=== PATIENT | female | born 1990 | race Two or more races ===

== ENCOUNTER 2018-07-14 05:32 | Day surgery (SDC) | payer BC, MEDICAID ==
[2018-07-07 10:15] LABS: HEMATOCRIT 39.4 % (36.0-47.0); HEMOGLOBIN 13.6 g/dL (12.0-15.5); MEAN CORPUSCULAR HEMOGLOBIN 31.7 pg (27.0-33.4); MEAN CORPUSCULAR HGB CONC 34.5 g/dL (32.0-36.0); MEAN CORPUSCULAR VOLUME 92 fl (80-97); PLATELET COUNT 219 10^3/uL (150-450); RED BLOOD COUNT 4.29 10^6/uL (3.72-5.28); RED CELL DISTRIBUTION WIDTH 11.8 % (11.5-14.0); WHITE BLOOD COUNT 6.4 10^3/uL (4.0-10.5)
[2018-07-07 10:30] LABS: APPEARANCE,URINE CLEAR; BILIRUBIN,URINE NEGATIVE (NEGATIVE); COLOR,URINE YELLOW; GLUCOSE, URINE NEGATIVE (NEGATIVE); KETONES,URINE NEGATIVE (NEGATIVE); LEUKOCYTE ESTERASE,URINE NEGATIVE (NEGATIVE); NITRITE,URINE NEGATIVE (NEGATIVE); PROTEIN,URINE NEGATIVE (NEGATIVE); UROBILINOGEN,URINE NEGATIVE mg/dL (<2.0)
[2018-07-07 10:46] LABS: ALANINE AMINOTRANSFERASE 18 U/L (9-52); ALBUMIN 4.2 g/dL (3.5-5.0); ALKALINE PHOSPHATASE 55 U/L (38-126); ANION GAP 10 (5-19); ASPARTATE AMINO TRANSFERASE 20 U/L (14-36); BILIRUBIN,DIRECT 0.2 mg/dL (0.0-0.4); BILIRUBIN,TOTAL 0.6 mg/dL (0.2-1.3); BLOOD UREA NITROGEN 6 mg/dL (7-20); CALCIUM 9.3 mg/dL (8.4-10.2); CARBON DIOXIDE 25 mmol/L (22-30); CHLORIDE 107 mmol/L (98-107); GLUCOSE 91 mg/dL (75-110); POTASSIUM 4.6 mmol/L (3.6-5.0); SODIUM 141.8 mmol/L (137-145); TOTAL PROTEIN 7.4 g/dL (6.3-8.2)
[~2018-07-14 05:32] MED LIST: GENTAMICIN SULFATE 80 MG in DEXTROSE 5%-WATER 100 ML IV PRN; LACTATED RINGERS 1000 ML IV PRN; LIDOCAINE 0.5% INJ-PF (5 MG/ML) 50 ML SDV SUBCUT PRN
[2018-07-14] MEDS ORDERED: ALBUTEROL SULFATE 0.083% NEB 2.5 MG/3 ML AMPUL NEB ONE (06:17)
[2018-07-14] MEDS ORDERED: LIDOCAINE 2% INJ (20 MG/ML) 20 ML MDV ONE (06:46)
[2018-07-14] MEDS ORDERED: MIDAZOLAM 2 MG/2 ML INJ ONE (06:47)
[2018-07-14] MEDS ORDERED: FENTANYL CITRATE INJ/PF 100 MCG/2 ML AMPUL ONE (06:47)
[2018-07-14] MEDS ORDERED: KETOROLAC TROMETHAMINE 60 MG/2 ML SDV ONE (06:47)
[2018-07-14] MEDS ORDERED: PROMETHAZINE HCL INJ 25 MG/1 ML VIAL ONE (06:47)
[2018-07-14] MEDS ORDERED: DEXAMETHASONE SOD PHOSPHATE INJ 4 MG/1 ML VIAL ONE (06:48)
[2018-07-14] MEDS ORDERED: PROPOFOL INJ 200 MG/20 ML VIAL IV ONE (06:48)
[2018-07-14] MEDS ORDERED: ONDANSETRON HCL INJ/PF 4 MG/2 ML SDV ONE (06:48)
[2018-07-14] MEDS ORDERED: SCOPOLAMINE HYDROBROMIDE 1.5 MG PATCH.TD72 ONE (07:19)
[2018-07-14] MEDS ORDERED: BUPIVACAINE HCL 0.25 % INJ/PF (2.5 MG/1 ML) 30 ML VIAL ONE (07:20)
[2018-07-14] MEDS ORDERED: BUPIVACAINE HCL 0.25% /EPINEPHRINE INJ/PF 30 ML SDV ONE (07:21)
[2018-07-14] MEDS ORDERED: PROMETHAZINE HCL INJ 25 MG/1 ML VIAL IV PRN ×2 (07:45→08:47)
[2018-07-14] MEDS ORDERED: FENTANYL CITRATE INJ/PF 100 MCG/2 ML AMPUL IV PRN ×3 (07:45)
[2018-07-14] MEDS ORDERED: DIPHENHYDRAMINE HCL 50 MG/ML VIAL IV PRN (07:45)
[2018-07-14] MEDS ORDERED: MEPERIDINE HCL/PF INJ 25 MG/1 ML DISP.SYRIN IV PRN (07:45)
[2018-07-14] MEDS ORDERED: MORPHINE SULFATE 10 MG/ML INJ IV PRN (07:45)
[2018-07-14] MEDS ORDERED: ONDANSETRON HCL INJ/PF 4 MG/2 ML SDV IV PRN (07:45)
[2018-07-14] MEDS ORDERED: OXYCODONE-ACETAMINOPHEN 5-325 MG TABLET PO PRN ×2 (08:46)
--- NOTE | 2018-07-14 09:05 | OPERATIVE REPORT E ---
Operative Report NAME: DENEEN JOSEPH : 1990 AGE: 28Y DATE OF SURGERY: 07/14/2018 ROOM: PREOPERATIVE DIAGNOSES: 1. Undesired fertility. 2. Bilateral labia majora cysts. POSTOPERATIVE DIAGNOSES: 1. Undesired fertility. 2. Bilateral labia majora cysts. 3. Suspected hidradenitis suppurativa of bilateral labia majora. OPERATION: 1. Pelvic under anesthesia. 2. Laparoscopic Filshie clip application for undesired fertility. SURGEON: DELIA AGUILERA M.D. ANESTHESIA: General. PERTINENT HISTORY AND OPERATIVE FINDINGS: This is a 28-year-old female who was a multip and was desirous of elective sterilization. She was aware of the risks and benefits and a small risk of failure. She was also having some issues with labial cysts and wanted these possibly excised at the time of surgery. She was aware of the risks and benefits, including bleeding, organ damage, and potential failure, and was willing to accept these risks. At the time of surgery the vulva had two areas, one on the right anterior vulva and one on the left posterior vulva, which appeared to be draining cysts. They did seem to have a tract associated with them and it was concerning for hidradenitis. The vagina appeared to be normal. The cervix appeared to be normal, consistent with multiparous state. The uterus was anterior, normal size and shape. Both tubes appeared to be normal, as did both ovaries. The cul-de-sac was clean. The bowel appeared to be normal. The liver and gallbladder also appeared to be normal. There was no evidence of any pelvic adhesions or abdominal adhesions. OPERATIVE PROCEDURE: The patient was brought into the OR, placed on the table in a supine position, inducted under general anesthesia. Following this she was repositioned in dorsal lithotomy position, prepped and draped in a sterile fashion. The bladder was drained of about 20 mL of clear yellow urine. She had just urinated prior to coming back to the OR. The pelvic examination was as above, and it was performed. The patient then had a bivalve speculum inserted. The cervix was grasped on its anterior lip with a single-tooth tenaculum, and it was sounded to 8 cm. Tenaculum and probe was inserted. The other equipment was removed. Attention was turned toward the abdominal wall. A Veress needle was introduced through the umbilicus and carried through the various layers until the abdominal cavity was entered. The patient then had the CO2 connected and the CO2 was opened up. The opening pressure was 4 cm of water. The closing pressure was 15 cm of water. She had 3.4 L of CO2 injected to establish a pneumoperitoneum. The Veress needle was removed. A small incision was then made infraumbilically. Through this incision a trocar and sleeve was inserted. The trocar was removed and a laparoscope was inserted. A second incision was then made suprapubically. Through this incision a trocar and sleeve were inserted under visualization, the trocar was removed, and through the sleeve a probe was inserted. The contents of the pelvis and abdomen were then visualized. Then, using the Filshie clip applicator, this was inserted gently through the sleeve and first the right salpinx and then the left salpinx had Filshie clips applied to the narrowest part of the fallopian tube, probably about 2 cm from the fundus. This terminated this part of the procedure. Pictures were taken. The lower sleeve was removed. There was no evidence of active bleeding. The CO2 was allowed to escape. The upper sleeve was removed. The patient had approximately 4 mL of 0.25% Marcaine injected into the upper subumbilical and suprapubic incisions. The fascia was then closed in both these incisions with interrupted 2-0 Vicryl. The skin edges were closed in the subumbilical incision with a subcuticular using 4-0 Prolene. The suprapubic incision was closed with interrupted 4-0 Prolene using 2 sutures. Attention was turned back down to the vagina. The Hulka applicator was removed from the uterus, which was used during the tubal for manipulation. The cervix was inspected and found to be okay, no evidence of active bleeding. The vulva was checked once again. It was consistent with these two areas which appeared to be hidradenitis, and with this in mind we terminated the procedure. The anesthesia was discontinued. The patient was placed back in a supine position and transferred to the recovery room in satisfactory condition. DICTATING PHYSICIAN: DELIA AGUILERA M.D. [id number] RICHIE#: [id number] ID: [id number] JOB#: [id number] ACCT: [id number] cc:DELIA AGUILERA M.D. >
[2018-07-14] MEDS ORDERED: OXYCODONE-ACETAMINOPHEN 5-325 MG TABLET ONE (09:39)
[2018-07-14 10:41] VITALS: BP 115/76
[2018-07-14] MEDS ORDERED: ROCURONIUM BROMIDE INJ 50 MG/5 ML VIAL IV ONE (13:31)
[2018-07-14] MEDS ORDERED: SUCCINYLCHOLINE CHLORIDE INJ 200 MG/10 ML VIAL ONE (13:31)
== END 2018-07-14 10:35 | disposition home or self-care (01) ==
LOC: OROUT 05:32
PROVIDERS: ATTEND Obstetrics & Gynecology
DX: Z30.2 Encounter for sterilization (principal); N90.7 Vulvar cyst; F17.210 Nicotine dependence, cigarettes, uncomplicated; Z80.0 Family history of malignant neoplasm of digestive organs
CPT/HCPCS: 36415; 85027; 81025; 80053; 81001; 94640; 58671; J2250; J3490 ×2; J1100; J1885; J3010; J1580; J2550; J0330; J2405; J7060; J2704; 851

== ENCOUNTER 2018-10-26 17:10 | Emergency (ER) | payer BC ==
[2018-10-26 17:17] VITALS: BP 112/67
--- NOTE | 2018-10-26 17:23 | ER Document Report ---
ED Medical Screen (RME) - General Chief Complaint: Abdominal Pain Stated Complaint: ISSUE Time Seen by Provider: 10/26/18 17:21 Primary Care Provider: MILAGROS AGUILERA NP [Primary Care Provider] - Follow up as needed Mode of Arrival: Ambulatory Information source: Patient Notes: 28-year-old female presented to ED for complaint of pelvic pain breast sensitivi ty. She states she had a bilateral tubal ligation at the end of June did not have any. And then she developed the low abdominal pain so she did home test which was positive. She went to [facility] which they did a blood test and told her that she was about 6 weeks . She came to the emergency room to find out where the baby is if she just had a tubal ligation. 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 I have greeted and performed a rapid initial assessment of this patient. A comprehensive ED assessment and evaluation of the patient, analysis of test results and completion of medical decision making process will be conducted by an additional ED providers. TRAVEL OUTSIDE OF THE [place] IN LAST 30 DAYS: No - Related Data Allergies/Adverse Reactions: Penicillins Allergy (Verified 10/26/18 17:11) unsure Past Medical History - Past Medical History Cardiac Medical History: Denies: Hx Coronary Artery Disease, Hx Heart Attack, Hx Hypertension Pulmonary Medical History: Denies: Hx Asthma, Hx Bronchitis, Hx COPD, Hx Pneumonia Neurological Medical History: Denies: Hx Cerebrovascular Accident, Hx Seizures Musculoskeltal Medical History: Denies Hx Arthritis - Immunizations Hx Diphtheria, Pertussis, Tetanus Vaccination: Yes Physical Exam - Vital signs Vitals: Temp Pulse Resp BP Pulse Ox 98.9 F 97 14 112/67 96 10/26/18 17:16 10/26/18 17:16 10/26/18 17:16 10/26/18 17:16 10/26/18 17:16 Course - Vital Signs Vital signs: Temp Pulse Resp BP Pulse Ox 98.9 F 97 14 112/67 96 10/26/18 17:16 10/26/18 17:16 10/26/18 17:16 10/26/18 17:16 10/26/18 17:16 Doctor's Discharge - Discharge Referrals: MILAGROS AGUILERA NP [Primary Care Provider] - Follow up as needed
[2018-10-26 17:48] LABS: ABSOLUTE LYMPHOCYTES (AUTO) 1.4 10^3/uL (0.5-4.7); ABSOLUTE MONOCYTES (AUTO) 0.4 10^3/uL (0.1-1.4); ABSOLUTE NEUT (AUTO) 7.6 10^3/uL (1.7-8.2); BASOPHILS % (AUTO) 0.1 % (0-2); EOSINOPHILS % (AUTO) 0.2 % (0-6); HEMATOCRIT 36.5 % (36.0-47.0); HEMOGLOBIN 12.8 g/dL (12.0-15.5); LYMPHOCYTES % (AUTO) 15.3 % (13-45); MEAN CORPUSCULAR HEMOGLOBIN 31.7 pg (27.0-33.4); MEAN CORPUSCULAR VOLUME 91 fl (80-97); MONOCYTES % (AUTO) 4.2 % (3-13); PLATELET COUNT 204 10^3/uL (150-450); RED BLOOD COUNT 4.02 10^6/uL (3.72-5.28); RED CELL DISTRIBUTION WIDTH 11.5 % (11.5-14.0); SEGMENTED NEUTROPHILS % (AUTO) 80.2 % (42-78); TOTAL CELLS COUNTED % (AUTO) 100 %; WHITE BLOOD COUNT 9.4 10^3/uL (4.0-10.5)
[2018-10-26 18:01] LABS: AMORPHOUS SEDIMENT,URINE TRACE /HPF; APPEARANCE,URINE CLOUDY; BILIRUBIN,URINE NEGATIVE (NEGATIVE); COLOR,URINE YELLOW; GLUCOSE, URINE NEGATIVE (NEGATIVE); KETONES,URINE TRACE mg/dL (NEGATIVE); LEUKOCYTE ESTERASE,URINE NEGATIVE (NEGATIVE); NITRITE,URINE NEGATIVE (NEGATIVE); PROTEIN,URINE NEGATIVE (NEGATIVE); URINE SPECIFIC GRAVITY 1.016; UROBILINOGEN,URINE NEGATIVE mg/dL (<2.0)
[2018-10-26 18:03] LABS: ALBUMIN 4.1 g/dL (3.5-5.0); ALKALINE PHOSPHATASE 61 U/L (38-126); ANION GAP 9 (5-19); ASPARTATE AMINO TRANSFERASE 20 U/L (14-36); BILIRUBIN,DIRECT 0.2 mg/dL (0.0-0.4); BILIRUBIN,TOTAL 0.5 mg/dL (0.2-1.3); BLOOD UREA NITROGEN 8 mg/dL (7-20); CALCIUM 9.5 mg/dL (8.4-10.2); CARBON DIOXIDE 25 mmol/L (22-30); CHLORIDE 102 mmol/L (98-107); GLUCOSE 88 mg/dL (75-110); POTASSIUM 3.8 mmol/L (3.6-5.0); TOTAL PROTEIN 7.1 g/dL (6.3-8.2)
--- NOTE | 2018-10-26 19:45 | RADIOLOGY REPORT (SQ) ---
EXAM DESCRIPTION: U/S OB 14+ TRNABD 1GES W/O DOP COMPLETED DATE/TIME: 10/26/2018 7:33 pm REASON FOR STUDY: BTL end of June positive test now COMPARISON: None. TECHNIQUE: Static and Dynamic grayscale imaging performed of gravid uterus using transabdominal appr oach. Additional selected color Doppler and spectral images recorded. All stored on PACS. LIMITATIONS: None. FINDINGS: FETUSES SEEN:1 EGA: 14 weeks 6 days Calculated using BPD,FL,HC,AC documented on images. No discrepancy with clinica l dates. JOANIE: 04/20/2019 EFW: 106+/- 16 grams PERCENTILE: Not calculated. KATHY: Adequate. PLACENTA: Posterior, cannot exclude previa. Grade 0 PRESENTATION: Variable. ANATOMY: Not surveyed. MATERNAL ADNEXA: Maternal ovaries not visualized. CERVICAL LENGTH: 3.2 cm. Closed. OTHER: No other significant finding. IMPRESSION: LIVING INTRAUTERINE . ESTIMATED GESTATIONAL AGE 14 weeks 6 days NO VISUALIZED ANOMALIES. Trimester of : Second trimester - 13 weeks 1 day to 27 weeks 6 days. TECHNICAL DOCUMENTATION: JOB ID: [id number]- All Rights Reserved Reading location - IP/workstation name: [email or web address]
== END 2018-10-26 20:00 | disposition home or self-care (01) ==
LOC: ER 17:10
DX: O26.892 Other specified pregnancy related conditions, second trimester (principal); R10.2 Pelvic and perineal pain; Z3A.00 Weeks of gestation of pregnancy not specified; Z98.51 Tubal ligation status
CPT/HCPCS: 36415; 76805; 80053; 81001; 84702; 85025; 86900; 86901; 99284

== ENCOUNTER → 2018-10-26 | Outpatient (CLI) | payer BC | LOC: OD 11:54 | PROVIDERS: ATTEND Nurse Practitioner Primary Care | DX: Z32.01 Encounter for pregnancy test, result positive (principal) | CPT/HCPCS: 36415; 84702 ==

== ENCOUNTER 2019-04-05 07:18 | Inpatient (IN) | payer BC, MEDICAID ==
[2019-04-05 08:16] LABS: APPEARANCE,URINE SLIGHTLY-CLOUDY; BILIRUBIN,URINE NEGATIVE (NEGATIVE); COLOR,URINE YELLOW; GLUCOSE, URINE NEGATIVE (NEGATIVE); KETONES,URINE NEGATIVE (NEGATIVE); LEUKOCYTE ESTERASE,URINE SMALL (NEGATIVE); NITRITE,URINE NEGATIVE (NEGATIVE); PROTEIN,URINE NEGATIVE (NEGATIVE); URINE SPECIFIC GRAVITY 1.008; UROBILINOGEN,URINE NEGATIVE mg/dL (<2.0)
[2019-04-05] MEDS ORDERED: CEFAZOLIN 2 GM/D5W RTU 2 GM/50 ML RTUPB IV PRN (08:22)
[2019-04-05] MEDS ORDERED: CEFAZOLIN 1 GM/D5W RTU 2 GM/100 ML RTUPB IV ONE (08:25)
[2019-04-05 08:33] LABS: URINE AMPHETAMINES SCREEN NEGATIVE; URINE BARBITURATES SCREEN NEGATIVE; URINE BENZODIAZEPINES SCREEN NEGATIVE; URINE COCAINE SCREEN NEGATIVE; URINE MARIJUANA (THC) SCREEN NEGATIVE; URINE METHADONE SCREEN NEGATIVE; URINE PHENCYCLIDINE SCREEN NEGATIVE
[2019-04-05] MEDS ORDERED: RINGERS SOLUTION,LACTATED 1,000 ML IV ONE (10:24)
--- NOTE | 2019-04-05 10:32 | Admission Physical ---
Datetime Report Generated by CPN: 04/05/2019 10:32 CURRENT ADMISSION Chief Complaint: Uterine Contractions; Vaginal Bleeding Indication for Induction: Not Applicable Admit Impression : Term, Intrauterine ; Active Labor Admit Plan: Admit to Unit; Initiate Labor Protocol ALLERGIES Medication Allergies: Yes Medication Allergies: Penicillins/unsure (10/26/2018) Latex: No Latex Allergies OBSTETRICAL HISTORY EDC: 04/20/2019 00:00 : 3 Para: 2 Term: 1 : 1 Cesareans: 0 Gestational Diabetes: No Rh Sensitization: No Incompetent Cervix: No JENNIFER: No Infertility: No ART Treatment: No Uterine Anomaly: No IUGR: No Hx Previous C/S: No Macrosomia: No Hx Loss/Stillborn: No PIH: No Hx : No Placenta Previa/Abruption: No Depression/PP Depression: No PTL/PROM: No Post Hemorrhage: No Current Procedures: Ultrasound SEE RECORDS Alcohol: No Marijuana : No Cocaine: No Other Illicit Drugs: No Cigarettes: Former Smoker. [id number] MEDICAL HISTORY Diabetes: No Blood Transfusion: No Pulmonary Disease (Asthma, TB): No Breast Disease: No Hypertension: No Grill Prep Cook Surgery: Yes Heart Disease: No Hosp/Surgery: No Autoimmune Disorder: No Anesthetic Complications: No Kidney Disease: No Abnormal Pap Smear: No Neuro/Epilepsy: No Psychiatric Disorders: No Other Medical Diseases: No Hepatitis/Liver Disease: No Significant Family History: No Varicosities/Phlebitis: No Trauma/Violence : No Thyroid Dysfunction: No Medical History Comments: tubal ligation 06/2018 INFECTIOUS HISTORY Gonorrhea: No Genital Herpes: No Chlamydia: No Tuberculosis: No Syphilis: No Hepatitis: No HIV/AIDS Exposure: No Rash or Viral Illness: No HPV: No PHYSICAL EXAM General: Normal HEENT: Normal Neurologic: Normal Thyroid: Deferred Heart: Normal Lungs: Normal Breast: Deferred Back: Normal Abdomen: Normal Genitourinary Exam: Normal Extremities: Normal DTRs: Deferred Pelvic Type: Adequate Physical Exam Comments: pelvis proven to 8# Vital Signs: Reviewed VAGINAL EXAM Dilatation: 5 Effacement: 70 Station: -1 Contraction Comments: q3 mins MEMBRANES Pooling: Negative FETUS A EGA: 37.6 Monitoring: External US FHR- Baseline: 125 Variability: Minimal - Undetectable to <=5bpm Accelerations: 10X10 Decelerations: None FHR Category: Category I Estimated Weight (gm): 3300 Presentation: Vertex Presentation- Other: by sve Admit Comment: at 37w6d in active labor. GBS pos, allergic to pcn, being treated with ampicillin. P: routine labor care, anticipate PLANS FOR LABOR AND DELIVERY Labor and Delivery: None Pain Management: Natural Feeding Preference: Breast Benefit of Breast Feed Discussed: Yes Circumcision: N/A INFORMED CONSENT Assignment: Liana Bradford MD Signature: with User ID: Gene : with User ID: Gene
[2019-04-05 11:02] LABS: ABSOLUTE LYMPHOCYTES (AUTO) 1.6 10^3/uL (0.5-4.7); ABSOLUTE MONOCYTES (AUTO) 0.5 10^3/uL (0.1-1.4); ABSOLUTE NEUT (AUTO) 10.9 10^3/uL (1.7-8.2); BASOPHILS % (AUTO) 0.2 % (0-2); EOSINOPHILS % (AUTO) 0.2 % (0-6); HEMATOCRIT 32.5 % (36.0-47.0); HEMOGLOBIN 11.2 g/dL (12.0-15.5); LYMPHOCYTES % (AUTO) 12.6 % (13-45); MEAN CORPUSCULAR HEMOGLOBIN 30.7 pg (27.0-33.4); MEAN CORPUSCULAR HGB CONC 34.4 g/dL (32.0-36.0); MEAN CORPUSCULAR VOLUME 89 fl (80-97); MONOCYTES % (AUTO) 3.6 % (3-13); PLATELET COUNT 171 10^3/uL (150-450); RED BLOOD COUNT 3.65 10^6/uL (3.72-5.28); RED CELL DISTRIBUTION WIDTH 12.4 % (11.5-14.0); SEGMENTED NEUTROPHILS % (AUTO) 83.4 % (42-78); TOTAL CELLS COUNTED % (AUTO) 100 %; WHITE BLOOD COUNT 13.1 10^3/uL (4.0-10.5)
[2019-04-05] MEDS ORDERED: CEFAZOLIN 1 GM/D5W RTU 1 GM/50 ML RTUPB IV SCH (15:00)
[2019-04-05] MEDS ORDERED: CEFAZOLIN 1 GM/D5W RTU 1 GM/50 ML RTUPB IV ONE (15:19)
[2019-04-05] MEDS ORDERED: LIDOCAINE 1% INJ-PF (10 MG/ML) 30 ML SDV ONE (15:32)
[2019-04-05] MEDS ORDERED: OXYTOCIN 10 UNIT/ML VIAL ONE (15:32)
[2019-04-05] MEDS ORDERED: OXYTOCIN/NORMAL SALINE 20 UNIT/1,000 ML RTUINJ ONE (15:32)
[2019-04-05] MEDS ORDERED: MISOPROSTOL 0.2 MG TABLET ONE (15:32)
[2019-04-05] MEDS ORDERED: ZOLPIDEM TARTRATE 5 MG TABLET PO PRN (16:39)
[2019-04-05] MEDS ORDERED: NA PHOS,M-B/NA PHOS,DI-BA (ADULT) 133 ML ENEMA PR PRN (16:39)
[2019-04-05] MEDS ORDERED: MAGNESIUM HYDROXIDE SUSP 30 ML UDCUP PO PRN (16:39)
[2019-04-05] MEDS ORDERED: ACETAMINOPHEN 650 MG SUPP.RECT PR PRN (16:39)
[2019-04-05] MEDS ORDERED: BENZOCAINE/MENTHOL AEROSOL SPRAY 56 ML TOP PRN (16:39)
[2019-04-05] MEDS ORDERED: MEASLES,MUMPS&RUBELLA VACC/PF 0.5 ML VIAL SUBCUT PRN (16:39)
[2019-04-05] MEDS ORDERED: DIPHENHYDRAMINE HCL 25 MG CAPSULE PO PRN (16:39)
[2019-04-05] MEDS ORDERED: DIBUCAINE 1% OINTMENT 28 GM TP PRN (16:39)
[2019-04-05] MEDS ORDERED: PROMETHAZINE HCL INJ 25 MG/1 ML VIAL IV PRN (16:39)
[2019-04-05] MEDS ORDERED: GLYCERIN/WITCH HAZEL LEAF 1 EACH MED..WIPE TP PRN (16:39)
[2019-04-05] MEDS ORDERED: PROMETHAZINE HCL 25 MG SUPP.RECT PR PRN (16:39)
[2019-04-05] MEDS ORDERED: DIPH/PERTUSS(ACELL)/TETANUS VAC/PF 0.5 ML SYR (>=10YO) IM PRN (16:39)
[2019-04-05] MEDS ORDERED: PROMETHAZINE HCL 25 MG TABLET PO PRN (16:39)
[2019-04-05] MEDS ORDERED: ACETAMINOPHEN WITH CODEINE #3 TABLET PO PRN ×2 (16:39)
[2019-04-05] MEDS ORDERED: OXYTOCIN/NORMAL SALINE 20 UNIT/1,000 ML RTUINJ IV PRN (16:39)
[2019-04-05] MEDS ORDERED: PSEUDOEPHEDRINE HCL 30 MG TABLET PO PRN (16:39)
[2019-04-05] MEDS ORDERED: FERROUS SULFATE 325 MG TABLET PO ONE (19:47)
[2019-04-05] MEDS ORDERED: DOCUSATE SODIUM 100 MG CAPSULE ONE (19:47)
[2019-04-05] MEDS: DOCUSATE SODIUM 100 MG CAPSULE PO SCH (19:49)
[2019-04-05] MEDS: FERROUS SULFATE 325 MG TABLET PO SCH (19:49)
--- NOTE | 2019-04-05 20:06 | Delivery Summary ---
Del Sum A-C Datetime Report Generated by CPN: 04/05/2019 20:06 DELIVERY PERSONNEL DELIVERY PERSONNEL: [id number] Delivery Doctor:: Aruna Whatley CNM Labor and Delivery Nurse:: Bobbi Bhatia RNdoll wig maker Nurse:: Jocelynn Flood RN Garment Steamer/OLIVE PACKER: Ambar Maldonado, UTILITIES OPERATOR Garment Steamer/OLIVE PACKER: Felicia Schneider ST Additional Personnel: : Lula Ji RN MATERNAL INFORMATION Delivery Anesthesia: None Medications After Delivery: Pitocin Bolus-Please Comment Delivery QBL: 200 Maternal Complications: None Provider Comments: STEVEN VIABLE FEMALE INFANT WITH SPONTANEOUS CRY. CORD DOUBLE CLAMPED AND CUT. SPONTANEOUS INTACT PLACENTA WITH 3VC. NO LACERATIONS. MOTHER AND INFANT STABLE IN L_D#5. LABOR SUMMARY EDC: 04/20/2019 00:00 No. Babies in Womb: 1 Attempted: No Labor Anesthesia: None LABOR INFORMATION Reason for Induction: Not Applicable Onset of Labor: 04/05/2019 06:00 Complete Dilatation: 04/05/2019 16:34 Oxytocin: N/A Group B Beta Strep: positive Antibiotics # of Doses: 2 Antibiotics Time of Last Dose: 1510 Name of Antibiotic Given: ancef Steroids Given: None Reason Steroids Not Administered: Not Applicable MEMBRANES Membranes Rupture Method: Artificial Rupture of Membranes: 04/05/2019 15:28 Length of Rupture (hr): 1.25 Amniotic Fluid Color: Clear Amniotic Fluid Amount: Small Amniotic Fluid Odor: Normal STAGES OF LABOR Stage 1 hr: 10 Stage 1 min: 34 Stage 2 hr: 0 Stage 2 min: 9 Stage 3 hr: 0 Stage 3 min: 4 Total Time in Labor hr: 10 Total Time in Labor min: 47 VAGINAL DELIVERY Episiotomy: None Laceration #1: None Laceration Extension #1: N/A Laceration Repair: Not Applicable Sponge Count Correct: N/A Sharps Count Correct: N/A CSECTION DELIVERY Primary Indication: N/A Secondary Indication: N/A CSection Incidence: N/A Labor: N/A Elective: N/A CSection Incision: N/A BABY A INFORMATION Delivery Date/Time: 04/05/2019 16:43 Method of Delivery: Vaginal Nurse Controlled Delivery: No Born in Route : Yes : N/A Forceps: N/A Vacuum Extraction: N/A Shoulder Dystocia : No PRESENTATION/POSITION BABY A Presentation: Cephalic Cephalic Presentation: Vertex Vertex Position: Left Occipital Anterior Breech Presentation: N/A PLACENTA INFORMATION BABY A Placenta Delivery Time : 04/05/2019 16:47 Placenta Method of Delivery: Spontaneous Placenta Status: Delivered SCORES BABY A Heart Rate 1 min: >100 bpm Resp Effort 1 min: Good Cry Reflex Irritability 1 min: Cough or Sneeze or Pulls Away Muscle Tone 1 min: Active Motion Color 1 min: Body [place], Extremities Blue Resuscitation Effort 1 min: N/A SCORE 1 MIN: 9 Heart Rate 5 min: >100 bpm Resp Effort 5 min: Good Cry Reflex Irritability 5 min: Cough or Sneeze or Pulls Away Muscle Tone 5 min: Active Motion Color 5 min: Body [place], Extremities Blue Resuscitation Effort 5 min: N/A SCORE 5 MIN: 9 INFORMATION BABY A Gestational Age at Delivery: 37.6 Gestational Status: Early Term- 37- 38.6 Weeks Outcome : Liveborn Infant Condition : Stable Infant Sex: Female IDENTIFICATION BABY A Infant Verification Date/Time: 04/05/2019 17:13 ID Band Number: [id number] Mother's Name Verified: Yes RN Verifying : [facility] RN Additional Verifying Personnel: R Alirezaalessandro RN WEIGHT/LENGTH BABY A Infant Birthweight (gm): 2776 Infant Weight (lb): 6 Infant Weight (oz): 2 Infant Length (in): 19.00 Infant Length (cm): 48.26 CORD INFORMATION BABY A No. Cord Vessels: 3 Nuchal Cord : N/A Cord Blood Taken: Yes-For Storage (Mom's Blood type +) Suction: None ASSESSMENT BABY A Skin to Skin: Yes BABY B INFORMATION : N/A SIGNATURES Assignment: Liana Bradford, MD Signature: with User ID: [email or web address] : with User ID: [email or web address] : I was personally available for consultation and serving as supervising physician for the MLP.
[2019-04-05] MEDS: FAMOTIDINE 20 MG TABLET PO SCH (22:32)
[2019-04-05] MEDS: IBUPROFEN 800 MG TABLET PO SCH (22:32)
[2019-04-06] MEDS: IBUPROFEN 800 MG TABLET PO SCH ×3 (05:09→21:25)
[2019-04-06 07:52] LABS: HEMATOCRIT 32.8 % (36.0-47.0); HEMOGLOBIN 11.6 g/dL (12.0-15.5); MEAN CORPUSCULAR HEMOGLOBIN 31.2 pg (27.0-33.4); MEAN CORPUSCULAR HGB CONC 35.2 g/dL (32.0-36.0); MEAN CORPUSCULAR VOLUME 88 fl (80-97); PLATELET COUNT 168 10^3/uL (150-450); RED BLOOD COUNT 3.71 10^6/uL (3.72-5.28); RED CELL DISTRIBUTION WIDTH 12.1 % (11.5-14.0); WHITE BLOOD COUNT 11.3 10^3/uL (4.0-10.5)
--- NOTE | 2019-04-06 09:21 | PDOC PROGRESS REPORT ---
Subjective-OB Progress Note for:: 04/06/19 Subjective: Doing well, no c/o, breast and bottle, voiding, eating well, scant lochia Physical Exam (OB) Vital Signs: Temp Pulse Resp BP Pulse Ox 97.8 F 62 16 105/65 99 04/06/19 08:00 04/06/19 08:00 04/06/19 08:00 04/06/19 08:00 04/06/19 08:00 Intake & Output 04/05/19 04/06/19 04/07/19 06:59 06:59 06:59 Intake Total 1500 Balance 1500 Weight 76.1 kg - PIH/Pre-Eclampsia Headache: Absent Epigastric Pain: No Visual Changes: No - Lochia Lochia Amount: Small 10-25 ml Lochia Color: Rubra/Red - Abdomen Description: Soft Hernia Present: No Fundal Description: Firm, Midline Fundal Height: u/u - u/2 Objective-Diagnostic Laboratory: 04/06/19 07:27 04/05/19 04/05/19 04/06/19 10:45 10:45 07:27 WBC 13.1 H 11.3 H RBC 3.65 L 3.71 L Hgb 11.2 L 11.6 L Hct 32.5 L 32.8 L MCV 89 88 MCH 30.7 31.2 MCHC 34.4 35.2 RDW 12.4 12.1 Plt Count 171 168 Seg Neutrophils % 83.4 H Blood Type B POSITIVE Antibody Screen NEGATIVE Assessment and Plan(PN) - Assessment and Plan (1) GBS (group B Streptococcus carrier), +RV culture, currently Is this a current diagnosis for this admission?: Yes (2) Vaginal delivery Is this a current diagnosis for this admission?: Yes - Time Spent with Patient Time with patient: Less than 15 minutes Medications reviewed and adjusted accordingly: Yes - Disposition Anticipated Discharge: Home Within: within 24 hours
[2019-04-06] MEDS: FAMOTIDINE 20 MG TABLET PO SCH ×2 (10:50→21:25)
[2019-04-06] MEDS: SENNOSIDES/DOCUSATE 8.6-50 MG 1 EACH TABLET PO SCH (10:50)
[2019-04-06] MEDS: DOCUSATE SODIUM 100 MG CAPSULE PO SCH ×2 (10:50→17:07)
[2019-04-06] MEDS: FERROUS SULFATE 325 MG TABLET PO SCH ×2 (10:50→17:08)
[2019-04-06] MEDS: PRENATAL VITAMIN W DHA CAPSULE PO SCH (10:50)
[2019-04-07] MEDS: IBUPROFEN 800 MG TABLET PO SCH (06:23)
[2019-04-07] MEDS: PRENATAL VITAMIN W DHA CAPSULE PO SCH (09:43)
[2019-04-07] MEDS: DOCUSATE SODIUM 100 MG CAPSULE PO SCH (09:43)
[2019-04-07] MEDS: FAMOTIDINE 20 MG TABLET PO SCH (09:43)
[2019-04-07] MEDS: SENNOSIDES/DOCUSATE 8.6-50 MG 1 EACH TABLET PO SCH (09:43)
[2019-04-07] MEDS: FERROUS SULFATE 325 MG TABLET PO SCH (09:43)
--- NOTE | 2019-04-07 11:18 | PDOC DISCHARGE SUMMARY ---
Impression - Admit/DC Date/PCP Admission Date/Primary Care Provider: 04/05/19 10:40 MILAGROS AGUILERA NP Discharge Date: 04/07/19 - PP Day #2, doing well, no issues, B+, Rubella immune, - Discharge Diagnosis (1) normal course Is this a current diagnosis for this admission?: Yes (2) GBS (group B Streptococcus carrier), +RV culture, currently Is this a current diagnosis for this admission?: Yes (3) Vaginal delivery Is this a current diagnosis for this admission?: Yes - Additional Information Resuscitation Status: Full Code Discharge Diet: As Tolerated, Regular Discharge Activity: Activity As Tolerated, No Lifting Over 10 Pounds, Pelvic Rest Referrals: [facility] [Provider Group] Prescriptions: Ibuprofen [Motrin 800 mg Tablet] 800 mg PO Q8 PRN #60 tablet PRN Reason: Pain Scale Of 3 Home Medications: Ibuprofen [Motrin 800 mg Tablet] 800 mg PO Q8 PRN #60 tablet 04/07/19 Vit/Dha [ Multi + Dha Capsule] 1 cap PO DAILY capsule 04/07/19 HPI Reason(s) for Admission: Onset of Labor Intrapartum Procedure(s): Spontaneous Vaginal Delivery Results Laboratory Results: WBC 11.3 10^3/uL (4.0-10.5) H 04/06/19 07:27 RBC 3.71 10^6/uL (3.72-5.28) L 04/06/19 07:27 Hgb 11.6 g/dL (12.0-15.5) L 04/06/19 07:27 Hct 32.8 % (36.0-47.0) L 04/06/19 07:27 MCV 88 fl (80-97) 04/06/19 07:27 MCH 31.2 pg (27.0-33.4) 04/06/19 07:27 MCHC 35.2 g/dL (32.0-36.0) 04/06/19 07:27 RDW 12.1 % (11.5-14.0) 04/06/19 07:27 Plt Count 168 10^3/uL (150-450) 04/06/19 07:27 Lymph % (Auto) 12.6 % (13-45) L 04/05/19 10:45 [place] % (Auto) 3.6 % (3-13) 04/05/19 10:45 Eos % (Auto) 0.2 % (0-6) 04/05/19 10:45 Baso % (Auto) 0.2 % (0-2) 04/05/19 10:45 Absolute Neuts (auto) 10.9 10^3/uL (1.7-8.2) H 04/05/19 10:45 Absolute Lymphs (auto) 1.6 10^3/uL (0.5-4.7) 04/05/19 10:45 Absolute Monos (auto) 0.5 10^3/uL (0.1-1.4) 04/05/19 10:45 Absolute Eos (auto) 0.0 10^3/uL (0.0-0.6) 04/05/19 10:45 Absolute Basos (auto) 0.0 10^3/uL (0.0-0.2) 04/05/19 10:45 Seg Neutrophils % 83.4 % (42-78) H 04/05/19 10:45 Urine Color YELLOW 04/05/19 07:20 Urine Appearance SLIGHTLY-CLOUDY 04/05/19 07:20 Urine pH 7.0 (5.0-9.0) 04/05/19 07:20 Ur Specific [place] 1.008 04/05/19 07:20 Urine Protein NEGATIVE mg/dL (NEGATIVE) 04/05/19 07:20 Urine Glucose (UA) NEGATIVE mg/dL (NEGATIVE) 04/05/19 07:20 Urine Ketones NEGATIVE mg/dL (NEGATIVE) 04/05/19 07:20 Urine Blood LARGE (NEGATIVE) H 04/05/19 07:20 Urine Nitrite NEGATIVE (NEGATIVE) 04/05/19 07:20 Urine Bilirubin NEGATIVE (NEGATIVE) 04/05/19 07:20 Urine Urobilinogen NEGATIVE mg/dL (<2.0) 04/05/19 07:20 Ur Leukocyte Esterase SMALL (NEGATIVE) H 04/05/19 07:20 Urine Ascorbic Acid NEGATIVE (NEGATIVE) 04/05/19 07:20 Urine Opiates Screen NEGATIVE 04/05/19 07:20 Urine Methadone Screen NEGATIVE 04/05/19 07:20 Ur Barbiturates Screen NEGATIVE 04/05/19 07:20 Ur Phencyclidine Scrn NEGATIVE 04/05/19 07:20 Ur Amphetamines Screen NEGATIVE 04/05/19 07:20 U Benzodiazepines Scrn NEGATIVE 04/05/19 07:20 Urine Cocaine Screen NEGATIVE 04/05/19 07:20 U Marijuana (THC) Screen NEGATIVE 04/05/19 07:20 RPR NONREACTIVE (NONREACTIVE) 04/05/19 10:45 Blood Type B POSITIVE 04/05/19 10:45 Antibody Screen NEGATIVE 04/05/19 10:45 Plan Plan of Treatment: d/c home, f/up with [facility] in 4 wks for PP check Time Spent: Less than 30 Minutes
[2019-04-07 11:57] VITALS: BP 105/65
== END 2019-04-07 13:30 | disposition home or self-care (01) | DRG 807 ==
LOC: LC 07:18 → LR 10:40 → 2S 20:13
PROVIDERS: ADMIT Obstetrics & Gynecology; ATTEND Obstetrics & Gynecology
PROC: 10E0XZZ Delivery of Products of Conception, External Approach (ICD-10-PCS; principal; 2019-04-05)
PROC: 10907ZC Drainage of Amniotic Fluid, Therapeutic from Products of Conception, Via Natural or Artificial Opening (ICD-10-PCS; 2019-04-05)
DX: O99.824 Streptococcus B carrier state complicating childbirth (principal); Z37.0 Single live birth; Z3A.37 37 weeks gestation of pregnancy; Z88.0 Allergy status to penicillin; Z87.891 Personal history of nicotine dependence
CPT/HCPCS: 36415; 80307; 81005; 85025; 85027; 86592; 86850; 86900; 86901; J0690; J2590; J3490

== ENCOUNTER 2019-10-13 16:07 | Emergency (ER) | payer BC, MEDICAID ==
--- NOTE | 2019-10-13 19:07 | ER Document Report ---
ED Medical Screen (RME) - General Chief Complaint: OB Problem (<20wks) Stated Complaint: TUBAL 07/10 TESTED POSTITIVE FOR Time Seen by Provider: 10/13/19 17:31 Primary Care Provider: MILAGROS AGUILERA NP [Primary Care Provider] - Follow up as needed Mode of Arrival: Ambulatory Information source: Patient Notes: HPI; a 29-year-old female presents to the emergency room stating that she had a positive home test today. States she had a bilateral tubal ligation in June 2018 started feeling nauseous and dizzy and thought she might be so she did a home test that was positive. Denies pain, denies any vaginal bleeding. PE: Alert and oriented x3. Mild distress noted. Lungs: Clear to auscultation without rales, rhonchi, wheezes. Heart: Regular rate rhythm without murmurs, rubs, gallops. I have greeted and performed a rapid initial assessment of this patient. A comprehensive ED assessment and evaluation of the patient, analysis of test results and completion of the medical decision making process will be conducted by additional ED providers. I have specifically instructed the patient or family members with the patient to immediately return to any nursing staff should anything change in the patient's condition or with their chief complaint. TRAVEL OUTSIDE OF THE [place] IN LAST 30 DAYS: No - Related Data Allergies/Adverse Reactions: Penicillins Allergy (Verified 10/26/18 17:11) unsure Past Medical History - Past Medical History Cardiac Medical History: Denies: Hx Coronary Artery Disease, Hx Heart Attack, Hx Hypertension Pulmonary Medical History: Denies: Hx Asthma, Hx Bronchitis, Hx COPD, Hx Pneumonia Neurological Medical History: Denies: Hx Cerebrovascular Accident, Hx Seizures Musculoskeltal Medical History: Denies Hx Arthritis - Immunizations Hx Diphtheria, Pertussis, Tetanus Vaccination: Yes Physical Exam - Vital signs Vitals: Temp Pulse Resp BP Pulse Ox 98.3 F 79 16 119/70 100 10/13/19 16:42 10/13/19 16:42 10/13/19 16:42 10/13/19 16:42 10/13/19 16:42 Course - Vital Signs Vital signs: Temp Pulse Resp BP Pulse Ox 98.3 F 79 16 119/70 100 10/13/19 16:42 10/13/19 16:42 10/13/19 16:42 10/13/19 16:42 10/13/19 16:42 - Laboratory Laboratory results interpreted by me: 10/13/19 17:53 Serum HCG, Qual POSITIVE H Doctor's Discharge - Discharge Referrals: MILAGROS AGUILERA NP [Primary Care Provider] - Follow up as needed
--- NOTE | 2019-10-13 20:55 | RADIOLOGY REPORT (SQ) ---
EXAM DESCRIPTION: US TRANSVAGINAL COMPLETED DATE/TME: 10/13/2019 19:01 CLINICAL HISTORY: 29 years Female with BTL COMPARISON: None. TECHNIQUE: Transvaginal duplex imaging performed to evaluate the pelvis. FINDINGS: Cervix measures 3 cm and appears closed. Right ovary measures 3.4 x 2 x 1.87 m with normal blood flow. Left ovary measures 2.8 x 2.8 x 2.3 cm. Corpus luteum cyst on the left. Normal blood flow. Intrauterine gestational sac with moderate adjacent subchronic hemorrhage. [place]-rump length 6 m. Yolk sac identified. heart rate 111 bpm. IMPRESSION: Living IUP corresponding to six weeks three days with small amount of adjacent subchorionic hemorrhage Corpus luteum cyst on the left
--- NOTE | 2019-10-13 22:28 | ER Document Report ---
Entered by VANITA MOULTON SCRIBE 10/13/190 Acting as scribe for:MERCEDES ALEMAN IV, MD ED GI/ - General Chief Complaint: OB Problem (<20wks) Stated Complaint: TUBAL 07/10 TESTED POSTITIVE FOR Time Seen by Provider: 10/13/19 17:31 Primary Care Provider: TRISTAN CHANEY MD [ACTIVE STAFF] - Follow up as needed IMLAGROS AGUILERA NP [Primary Care Provider] - Follow up as needed Mode of Arrival: Ambulatory Information source: Patient Notes: This 29 year old female patient, , presents to the ED today for evaluation of a positive home test after having nausea for the past x3 weeks. Patient reports that she had a bilateral tubal ligation performed by Dr. Gonzalo Aguilera in June 2018. She mentions that she found out she was with her third child a few days prior to her surgery and gave in March 2019. Denies abdominal pain or vaginal bleeding. 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 TRAVEL OUTSIDE OF THE [place] IN LAST 30 DAYS: No - Related Data Allergies/Adverse Reactions: Penicillins Allergy (Verified 10/26/18 17:11) unsure Past Medical History - General Information source: Patient - Social History Smoking Status: Unknown if Ever Smoked Smoking Education Provided: No Family History: Reviewed & Not Pertinent Patient has suicidal ideation: No Patient has homicidal ideation: No Past Surgical History: Reports: Hx Tubal Ligation - June 2018 - Immunizations Hx Diphtheria, Pertussis, Tetanus Vaccination: Yes Review of Systems - Review of Systems Constitutional: No symptoms reported EENT: No symptoms reported Cardiovascular: No symptoms reported Respiratory: No symptoms reported Gastrointestinal: See HPI, Nausea. denies: Abdominal pain Genitourinary: No symptoms reported Female Genitourinary: See HPI, . denies: Vaginal bleeding Musculoskeletal: No symptoms reported Skin: No symptoms reported Hematologic/Lymphatic: No symptoms reported Neurological/Psychological: No symptoms reported -: Yes All other systems reviewed and negative Physical Exam - Vital signs Vitals: Temp Pulse Resp BP Pulse Ox 98.3 F 79 16 119/70 100 10/13/19 16:42 10/13/19 16:42 10/13/19 16:42 10/13/19 16:42 10/13/19 16:42 Interpretation: Normal - General General appearance: Appears well, Alert In distress: None - HEENT Head: Normocephalic, Atraumatic Eyes: Normal Pupils: PERRL - Respiratory Respiratory status: No respiratory distress Chest status: Nontender Breath sounds: Normal Chest palpation: Normal - Cardiovascular Rhythm: Regular Heart sounds: Normal auscultation Murmur: No Friction rub: No Gallop: None auscultated - Abdominal Inspection: Normal Distension: No distension Bowel sounds: Normal Tenderness: Nontender - Abdomen soft Organomegaly: No organomegaly - Back Back: Normal, Nontender - Extremities General upper extremity: Normal inspection General lower extremity: Normal inspection - Neurological Neuro grossly intact: Yes Orientation: AAOx4 [place] Coma Scale Eye Opening: Spontaneous Roman Coma Scale Verbal: Oriented [place] Coma Scale Motor: Obeys Commands Roman Coma Scale Total: 15 - Psychological Associated symptoms: Normal affect, Normal mood - Skin Skin Temperature: Warm Skin Moisture: Dry Skin Color: Normal Course - Re-evaluation Re-evalutation: 10/13/19 22:07 Results of ED MSE discussed with patient. All questions were answered prior to discharge. Emergency signs and symptoms, reasons to return to the emergency department discussed with patient. - Vital Signs Vital signs: Temp Pulse Resp BP Pulse Ox 98.7 F 86 16 116/76 100 10/13/19 22:15 10/13/19 22:15 10/13/19 22:15 10/13/19 22:15 10/13/19 22:15 - Laboratory Laboratory results interpreted by me: 10/13/19 10/13/19 17:53 17:53 Serum HCG, Qual POSITIVE H Beta HCG, Quant [id number] H - Diagnostic Test Radiology reviewed: Reports reviewed Discharge - Discharge Clinical Impression: Intrauterine , History of bilateral tubal ligation, Blood type, Rh positive Subchorionic hematoma in first trimester Qualifiers: Fetus number: single or unspecified fetus Qualified Code(s): O41.8X10 - Other specified disorders of amniotic fluid and membranes, first trimester, not applicable or unspecified; O46.8X1 - Other antepartum hemorrhage, first trimester Condition: Stable Disposition: HOME, SELF-CARE Additional Instructions: Return to the Emergency Department without delay if any worse. HOME CARE INSTRUCTIONS & INFORMATION: Thank you for choosing us for your medical needs. We hope you're satisfied with the care you received. After you leave, you must properly care for your problem and, at the same time, observe its progress. Any condition can change. Some illnesses can change rapidly over hours or days. If your condition worsens, return to the Emergency Department or see your physician promptly. ABOUT YOUR X-RAYS AND EKG'S: If you had an EKG or X-rays taken, they have been read by the Emergency Physician. The X-rays and EKG's will also be read by a Radiologist or Hazardous Materials Tanker Driver within 24 hours. If discrepancies are noted, you will be notified by telephone. Please be certain the ED has a correct telephone number & address where you can be reached. Also, realize that some fractures or abnormalities do not show up on initial X-rays. If your symptoms continue, see your physician. ABOUT YOUR LABORATORY TEST: If you had laboratory tests, the results have been reviewed by the Emergency Physician. Some test results (for example cultures) may not be available for several days. You will be contacted if any test result shows you need additional treatment. Please be certain the ED has a correct telephone number and address where you can be reached. ABOUT YOUR MEDICATIONS: You will receive instructions on how to take your med icine on the prescription label you receive. Additional information may be provided by the Pharmacy. If you have questions afterwards, call the ED for clarification or further instructions. Some prescribed medications may cause drowsiness. Do not perform tasks such as driving a car or operating machinery without consulting your Pharmacist. If you feel you need a refill of pain medication, your condition will need re-evaluation. Please do not call for a refill of any medication. ABOUT YOUR SIGNATURE: Signature of this document acknowledges to followin. Understanding that you received emergency treatment and that you may be released before al medical problems are known or treated. Please be certain the ED has a correct phone number & address where you can be reached. 2. Acknowledgement that you will arrange for follow-up care as recommended. 3. Authorization for the Emergency Physician to provide information to your follow-up Physician in order to maximize your care. AT ANY TIME, IF YOUR SYMPTOMS CHANGE SIGNIFICANTLY OR WORSEN OR YOU DEVELOP NEW SYMPTOMS, RETURN TO THE EMERGENCY DEPARTMENT IMMEDIATELY FOR RE-EVALUATION. OUR GOAL IS TO PROVIDE EXCELLENT MEDICAL CARE! WE HOPE THAT WE HAVE MET YOUR EXPECTATIONS DURING YOUR EMERGENCY DEPARTMENT VISIT AND THAT YOU FEEL YOU HAVE RECEIVED EXCELLENT CARE! Referrals: ALE,MILAGROS, DEBONE SUPERVISOR [Primary Care Provider] - Follow up as needed TRISTAN CHANEY MD [ACTIVE STAFF] - Follow up as needed I personally performed the services described in the documentation, reviewed and edited the documentation which was dictated to the scribe in my presence, and it accurately records my words and actions.
[2019-10-13 22:30] VITALS: BP 116/76
== END 2019-10-13 22:41 | disposition home or self-care (01) ==
LOC: ER 16:07
DX: O46.8X1 Other antepartum hemorrhage, first trimester (principal); O41.8X10 Other specified disorders of amniotic fluid and membranes, first trimester, not applicable or unspecified; O26.891 Other specified pregnancy related conditions, first trimester; R11.0 Nausea; Z3A.01 Less than 8 weeks gestation of pregnancy; Z88.0 Allergy status to penicillin
CPT/HCPCS: 36415; 76817; 84702; 84703; 93976; 99284

== ENCOUNTER 2020-03-04 08:42 | Day surgery (SDC) | payer BC, MEDICAID ==
[~2020-03-04 08:42] MED LIST changes: -GENTAMICIN SULFATE 80 MG in DEXTROSE 5%-WATER 100 ML IV PRN
[2020-03-04 09:11] LABS: APPEARANCE,URINE CLEAR; BILIRUBIN,URINE NEGATIVE (NEGATIVE); COLOR,URINE YELLOW; GLUCOSE, URINE NEGATIVE (NEGATIVE); KETONES,URINE NEGATIVE (NEGATIVE); LEUKOCYTE ESTERASE,URINE NEGATIVE (NEGATIVE); NITRITE,URINE NEGATIVE (NEGATIVE); PROTEIN,URINE NEGATIVE (NEGATIVE); URINE SPECIFIC GRAVITY 1.021; UROBILINOGEN,URINE NEGATIVE mg/dL (<2.0)
[2020-03-04 09:42] LABS: ABSOLUTE EOSINOPHILS # (AUTO) 0.1 10^3/uL (0.0-0.6); ABSOLUTE LYMPHOCYTES (AUTO) 1.4 10^3/uL (0.5-4.7); ABSOLUTE MONOCYTES (AUTO) 0.4 10^3/uL (0.1-1.4); ABSOLUTE NEUT (AUTO) 4.9 10^3/uL (1.7-8.2); BASOPHILS % (AUTO) 0.2 % (0-2); EOSINOPHILS % (AUTO) 0.9 % (0-6); HEMOGLOBIN 13.6 g/dL (12.0-15.5); LYMPHOCYTES % (AUTO) 20.6 % (13-45); MEAN CORPUSCULAR HEMOGLOBIN 31.1 pg (27.0-33.4); MEAN CORPUSCULAR HGB CONC 34.9 g/dL (32.0-36.0); MEAN CORPUSCULAR VOLUME 89 fl (80-97); MONOCYTES % (AUTO) 5.4 % (3-13); PLATELET COUNT 209 10^3/uL (150-450); RED BLOOD COUNT 4.38 10^6/uL (3.72-5.28); SEGMENTED NEUTROPHILS % (AUTO) 72.9 % (42-78); TOTAL CELLS COUNTED % (AUTO) 100 %; WHITE BLOOD COUNT 6.7 10^3/uL (4.0-10.5)
[2020-03-04] MEDS ORDERED: MIDAZOLAM 2 MG/2 ML INJ ONE (10:28)
[2020-03-04] MEDS ORDERED: PROPOFOL INJ 200 MG/20 ML VIAL IV ONE (10:28)
[2020-03-04] MEDS ORDERED: FENTANYL CITRATE INJ/PF 100 MCG/2 ML AMPUL ONE ×2 (10:28→13:11)
[2020-03-04] MEDS ORDERED: BUPIVACAINE HCL 0.25 % INJ/PF (2.5 MG/1 ML) 30 ML VIAL ONE (10:33)
[2020-03-04] MEDS ORDERED: SUGAMMADEX SODIUM 200 MG/2 ML SDV IV ONE (10:37)
[2020-03-04] MEDS ORDERED: CEFAZOLIN 2 GM/D5W RTU 2 GM/50 ML RTUPB IV PRN (11:34)
[2020-03-04] MEDS ORDERED: CEFAZOLIN 2 GM/D5W RTU 2 GM/50 ML RTUPB IV ONE (12:04)
[2020-03-04] MEDS ORDERED: OXYCODONE-ACETAMINOPHEN 5-325 MG TABLET PO PRN ×4 (12:47→13:27)
[2020-03-04] MEDS ORDERED: MEPERIDINE HCL/PF INJ 25 MG/1 ML DISP.SYRIN IV PRN (12:47)
[2020-03-04] MEDS ORDERED: PROMETHAZINE HCL INJ 25 MG/1 ML VIAL IV PRN ×2 (12:47)
[2020-03-04] MEDS ORDERED: DIPHENHYDRAMINE HCL 50 MG/ML VIAL IV PRN (12:47)
[2020-03-04] MEDS ORDERED: FENTANYL CITRATE INJ/PF 100 MCG/2 ML AMPUL IV PRN ×3 (12:47)
[2020-03-04] MEDS ORDERED: OXYCODONE-ACETAMINOPHEN 5-325 MG TABLET ONE (13:11)
[2020-03-04] MEDS ORDERED: ONDANSETRON HCL INJ/PF 4 MG/2 ML SDV IV PRN (13:24)
[2020-03-04] MEDS ORDERED: IBUPROFEN 800 MG TABLET PO PRN (13:27)
[2020-03-04] MEDS ORDERED: LIDOCAINE 2% INJ-PF (20 MG/ML) 2 ML AMPUL ONE (14:07)
[2020-03-04] MEDS ORDERED: ROCURONIUM BROMIDE INJ 50 MG/5 ML VIAL IV ONE (14:07)
[2020-03-04] MEDS ORDERED: ONDANSETRON HCL INJ/PF 4 MG/2 ML SDV ONE (14:07)
[2020-03-04] MEDS ORDERED: DIPHENHYDRAMINE HCL 50 MG/ML VIAL ONE (14:07)
[2020-03-04] MEDS ORDERED: DEXAMETHASONE SOD PHOSPHATE INJ 4 MG/1 ML VIAL ONE (14:07)
[2020-03-04] MEDS ORDERED: KETOROLAC TROMETHAMINE 60 MG/2 ML SDV ONE (14:07)
[2020-03-04 15:13] VITALS: BP 124/85
--- NOTE | 2020-03-05 05:53 | Operative Report ---
Operative Report DATE OF SURGERY: 03/04/20 PREOPERATIVE DIAGNOSIS: Undesired Fertility, Failed previous sterilization POSTOPERATIVE DIAGNOSIS: Undesired Fertility, Failed previous sterilization OPERATION: Operative L/S with Bilateral Salpingectomy and removal of Filschie clips SURGEON: TRISTAN CHANEY ANESTHESIA: GA TISSUE REMOVED OR ALTERED: Bilateral Fallopian tubes, Bilateral filschie clips COMPLICATIONS: none ESTIMATED BLOOD LOSS: 5 INTRAOPERATIVE FINDINGS: Normal appearing Liver edge and edge of gallbladder visible. Left fallopian tube appears intact and no filschie noted on fallopian tube. There was a thin adhesion extending from fallopian tube into pelvis which was followed to end where filschie clip was located in the posterior culd e sac. The right fallopian tube noted to have filschie clip located in the mid ampullary portion of the tube but barely hanging in place and not occluding lumen of the tube. PROCEDURE: Anesthesiologist: Dr. Genesis Lovell CRNA, MD IV fluids: [800ml] Urine output: [void prior to OR, in and out with 30cc] Indications: [3yo ( x 3 then ETOP) with prior Laparoscopic BTL but concieved times two post her tubal sterilization procedure. She strongly desires definitive sterilization procedure and desires to have Laparoscopic Bilateral Salpingectomy. She is 100% sure that she has completed childbearing. The risks, benefits, alternatives were reviewed and she desires to proceed with planned procedure.] Procedure: The patient was taken to the operating room where general anesthesia was obtained without difficulty. The patient was then examined under anesthesia with findings as noted above with a small anteverted uterus. She was then placed in dorsal supine lithotomy position and prepped and draped in the normal sterile fashion. Malinta speculum was then placed in the patient's vagina and the anterior lip of the cervix grasped with a single-tooth tenaculum. A Sellobuy uterine manipulator was then advanced into the uterus to provide a means of manipulation of the uterus. The speculum and tenaculum were then removed from the patient's cervix and vagina. Attention was then turned to the patient's abdomen where a 5 mm infraumbilical skin incision was then made. The Optiview trocar with 0 laparoscope was then advanced without difficulty under direct visualization with the Optiview trocar. This was performed while tenting the abdominal wall and these will fashion. Intraperitoneal placement was confirmed by the direct visualization. Pneumoperitoneum was then obtained with approximately 4 L carbon dioxide gas. Survey of the patient's abdomen and pelvis revealed findings as noted above. A second skin incision was then made approximately 3 cm superior 4 cm medial to the anterior superior iliac spine on the left and then a third skin incision was made approximately 3 cm superior to the lower incision. These incisions were made under direct visualization with the laparoscope. The second and third trochars were then advanced under direct visualization of the laparoscope at the sites. The right fallopian tube was then identified and followed out to the fimbriated end and the LigaSure device was used to clamp and cauterize and cut the mesosalpinx extending from the fimbriated end to the cornua of the uterus thus removing the right fallopian tube in its entirety. The right ovary was noted to be normal and vasculature remained intact to this ovary. Attention was then turned to the left adnexa at which time the left fallopian tube was identified and followed out to the fimbriated end. LigaSure device was then used to clamp and cauterize and cut the mesosalpinx extending from the fimbriated end of the left fallopian tube to the uterine cornual thus removing the left fallopian tube in its entirety. The left ovary was normal and vasculature intact. The left and right fallopian tubes were removed easily through the trocar and both filschie clips were also removed through the trochar. All operative sites were visualized and noted to be hemostatic. The 2 additional trochars on the patient's left greater than removed under direct visualization. The 10 mm trocar was then removed after abdominal insufflation was removed. The fascia at the 10 mm trocar site was closed with 0 Vicryl on a UR 6 needle. The skin at all trocar sites were closed with 3-0 Monocryl in a subcuticular fashion with overlying Dermabond. Ancef 2 grams given IV preoperatively. After completion of skin closure of the trocar sites attention was then turned to the vagina where the Hulka uterine manipulator was removed and the bivalve speculum was replaced. Silver nitrate was applied to the tenaculum sites for hemostasis and the speculum was removed. Sponge lap needle and instrument counts were correct 3. The patient tolerated the procedure well and was taken to the recovery area awake and in stable condition.
== END 2020-03-04 14:45 | disposition home or self-care (01) ==
LOC: OROUT 08:42
PROVIDERS: ATTEND Student in an Organized Health Care Education/Training Program
DX: Z30.2 Encounter for sterilization (principal); N83.8 Other noninflammatory disorders of ovary, fallopian tube and broad ligament; Z01.812 Encounter for preprocedural laboratory examination; Z20.822 Contact with and (suspected) exposure to COVID-19; Z01.818 Encounter for other preprocedural examination; Z98.51 Tubal ligation status; F17.210 Nicotine dependence, cigarettes, uncomplicated; Z79.3 Long term (current) use of hormonal contraceptives
CPT/HCPCS: 36415; 85025; 81025; 81001; 88302 ×2; 58661; U0003; J2250; J3490 ×3; J1100; J1200; J1885; J3010; J2405; J2704; J0690; C9803; 840; 87635